=== PATIENT | male | born 1990 | race Caucasian/White ===

== ENCOUNTER 2024-04-27 14:29 | Inpatient (IN) | payer OTHER ==
[2024-04-27 15:35] VITALS: BMI 27.1
[2024-04-27] MEDS ORDERED: POLYETHYLENE GLYCOL (HEALTHYLAX) 3350 17 GM PACKET PO PRN (17:42)
[2024-04-27] MEDS ORDERED: P-EPHED 60MG/TRIPROLIDI 2.5MG TABLET PO PRN (17:42)
[2024-04-27] MEDS ORDERED: hydrOXYzine PAMOATE 25 MG CAPSULE (FP) PO PRN (17:42)
[2024-04-27] MEDS ORDERED: IBUPROFEN 600 MG TABLET (FP) PO PRN (17:42)
[2024-04-27] MEDS ORDERED: ACETAMINOPHEN 325 MG TABLET (FP) PO PRN (17:42)
[2024-04-27] MEDS ORDERED: MAGNESIUM HYDROX 2400MG/30ML ORAL SUSPENSION 30 ML CUP PO PRN (17:42)
[2024-04-27] MEDS ORDERED: MAG HYDROX/AL HYDROX/SIMETH 30 ML UNIT-DOSE CUP PO PRN (17:42)
[2024-04-27] MEDS ORDERED: BENZONATATE 200 MG CAPSULE PO PRN (17:42)
[2024-04-27] MEDS ORDERED: NALOXONE HCL 0.4 MG/ML VIAL IM PRN (17:42)
[2024-04-27] MEDS ORDERED: BENZOCAINE/MENTHOL (CHLORASEPTIC ) LOZENGE MM PRN (17:42)
[2024-04-27] MEDS ORDERED: guaiFENesin 600 MG TABLET.ER (FP) PO PRN (17:42)
[2024-04-27] MEDS ORDERED: NICOTINE POLACRILEX 2 MG LOZENGE BC PRN (17:42)
[2024-04-27] MEDS ORDERED: NALOXONE (NARCAN) HCL 4 MG/0.1 ML SPRAY NS PRN (17:42)
[2024-04-27] MEDS ORDERED: BISACODYL 5 MG TABLET.DR (FP) PO PRN (17:42)
[2024-04-27] MEDS ORDERED: NICOTINE POLACRILEX 2 MG GUM BUC PRN (17:42)
[2024-04-27] MEDS ORDERED: LOPERAMIDE HCL 2 MG CAPSULE PO PRN (17:42)
[2024-04-27] MEDS ORDERED: IBUPROFEN 400 MG TABLET (FP) PO PRN (17:42)
[2024-04-27] MEDS ORDERED: DOCUSATE SODIUM 100 MG CAPSULE (FP) PO PRN (17:42)
[2024-04-27 18:51] VITALS: BP 149/76; PULSE 78; RESP 18; TEMP 98
[2024-04-27] MEDS: TUBERCULIN PPD 5 TU/0.1ML SYRINGE (IN PATIENT USE ONLY) ID ONE (22:58)
[2024-04-27] MEDS: MELATONIN 5 MG TABLETS PO SCH (23:08)
[2024-04-27] MEDS: THIAMINE 100 MG TABLET PO SCH (23:09)
[2024-04-28] MEDS ORDERED: PRENATAL VITAMINS W/ FOLIC ACID TABLET (FP) PO SCH (10:00)
== END 2024-04-28 00:25 | disposition left against medical advice (07) | DRG 770 ==
LOC: YASAS 14:29 → Y3NR 18:03
PROVIDERS: ADMIT Allergy & Immunology; ATTEND Psychiatry & Neurology Pain Medicine
PROC: HZ42ZZZ Group Counseling for Substance Abuse Treatment, Cognitive-Behavioral (ICD-10-PCS; principal; 2024-04-27)
DX: F16.20 Hallucinogen dependence, uncomplicated (principal); F11.20 Opioid dependence, uncomplicated; F12.20 Cannabis dependence, uncomplicated; F17.210 Nicotine dependence, cigarettes, uncomplicated; Z59.00 Homelessness unspecified
CPT/HCPCS: 80305; 80307; 87811